=== PATIENT | male | born 1985 | race Caucasian/White ===

== ENCOUNTER → 2016-12-31 15:46 | Outpatient (CLI) | payer MEDICARE ==
[2016-12-31 16:50] LABS: INR 1.33 (0.85-1.17); PROTIME 16.4 SECONDS (11.6-15.0)
== END | disposition home or self-care (01) ==
LOC: D.LABREF 15:46
PROVIDERS: Orthopaedic Surgery
DX: Z51.81 Encounter for therapeutic drug level monitoring (principal); Z79.01 Long term (current) use of anticoagulants

== ENCOUNTER → 2017-04-02 11:16 | Outpatient (CLI) | payer MEDICARE ==
[2017-04-02 13:33] LABS: HELICOBACTER PYLORI IGG NEGATIVE (NEGATIVE)
[2017-04-04 13:08] LABS: IMMUNOGLOBULIN G 1338 mg/dL (700-1600); IMMUNOGLOBULIN M 74 mg/dL (20-172)
== END | disposition home or self-care (01) ==
LOC: D.LAB 11:16
PROVIDERS: Internal Medicine Gastroenterology
DX: R10.9 Unspecified abdominal pain (principal)